=== PATIENT | female | born 1995 | race Caucasian/White ===

== ENCOUNTER 2016-12-26 10:59 | Inpatient (IN) | payer MEDICAID ==
[~2016-12-26] VITALS: Ht 157.5 cm; Wt 56.8 kg
[2016-12-26 12:43] LABS: BASOPHIL % 0.2 % (0-2); PLATELET COUNT 216 x10^3mcL (130-400); RED CELL DISTRIBUTION WIDTH 12.8 % (11.5-14.5)
[2016-12-26 12:54] LABS: CALCIUM 8.9 mg/dL (8.5-10.1); CARBON DIOXIDE 29.4 mmol/L (21-32); CHLORIDE SERUM 101 mmol/L (98-107); CREATININE SERUM 0.6 mg/dL (0.6-1.0); GFR1 > 60 mL/min; GLUCOSE SERUM 87 mg/dL (74-106); POTASSIUM SERUM 3.8 mmol/L (3.5-5.1); SODIUM SERUM 141 mmol/L (136-145)
[2016-12-26 12:58] LABS: ALKALINE PHOSPHATASE 96 U/L (46-116); ALT/SGPT 17 U/L (14-59); AST/SGOT 14 U/L (15-37); BILIRUBIN TOTAL 0.9 mg/dL (0.20-1.00); LIPASE 120 IU/L (73-393); TOTAL PROTEIN, SERUM 7.8 g/dL (6.4-8.2)
[2016-12-26 16:18] LABS: CHOLESTEROL/HDL RATIO 2.2
[2016-12-26 16:23] LABS: FREE T4 1.16 ng/dL (0.76-1.46); FREE THYROXINE INDEX 2.8 ug/dL (1.4-4.5); T4(THYROXINE) 8.9 ug/dL (4.7-13.3)
[2016-12-26 16:31] VITALS: BP 111/68
[2016-12-26 16:49] LABS: T3 TOTAL 1.1 ng/mL
[2016-12-26 20:57] VITALS: BP 100/65
[2016-12-27 05:15] VITALS: BP 92/52
[2016-12-27 06:04] LABS: BASOPHIL % 0.2 % (0-2); PLATELET COUNT 198 x10^3mcL (130-400); RED CELL DISTRIBUTION WIDTH 12.7 % (11.5-14.5)
[2016-12-27 06:24] LABS: CALCIUM 8.6 mg/dL (8.5-10.1); CARBON DIOXIDE 25.7 mmol/L (21-32); CHLORIDE SERUM 106 mmol/L (98-107); CREATININE SERUM 0.5 mg/dL (0.6-1.0); GFR1 > 60 mL/min; GLUCOSE SERUM 111 mg/dL (74-106); MAGNESIUM 1.7 mg/dL (1.8-2.4); PHOSPHOROUS 4.6 mg/dL (2.5-4.9); POTASSIUM SERUM 4.3 mmol/L (3.5-5.1); SODIUM SERUM 141 mmol/L (136-145)
[2016-12-27 09:59] VITALS: BP 94/50
[2016-12-27 17:13] LABS: microscopic required? YES; urine erythrocyte 1+ (NEGATIVE)
[2016-12-27 17:27] LABS: AMPHETAMINE QUAL UR NONE DETECTED (NEG <=1000)
[2016-12-27 18:53] VITALS: BP 99/59
[2016-12-27 22:17] VITALS: BP 91/54
[2016-12-28 06:05] LABS: BASOPHIL % 0.4 % (0-2); PLATELET COUNT 198 x10^3mcL (130-400); RED CELL DISTRIBUTION WIDTH 12.8 % (11.5-14.5)
[2016-12-28 06:07] VITALS: BP 97/60
[2016-12-28] MEDS ORDERED: KEFLEX500 M1 PO (10:06)
[2016-12-28] MEDS ORDERED: LAC PO (10:06)
[2016-12-28] MEDS ORDERED: COLACE100 MG PO (10:07)
[2016-12-28] MEDS ORDERED: TYL500 PO (10:08)
[2016-12-28 11:04] VITALS: BP 98/60
[2016-12-28 13:59] VITALS: BP 98/60
== END 2016-12-28 14:43 | disposition home or self-care (01) | DRG 225 ==
LOC: ED 10:59 → MU 14:35 → DU 14:35 → MU 16:18
PROVIDERS: Emergency Medicine; Surgery; ADMIT Family Medicine
PROC: 0DTJ4ZZ Resection of Appendix, Percutaneous Endoscopic Approach (ICD-10-PCS; principal; 2016-12-26 17:00)
DX: K35.80 Unspecified acute appendicitis (principal); E44.0 Moderate protein-calorie malnutrition; E83.42 Hypomagnesemia; N39.0 Urinary tract infection, site not specified; Z68.22 Body mass index [BMI] 22.0-22.9, adult
CPT/HCPCS: 83880; 84439; J0330; J0690; J0696; J1885; J2175; J2250; J2405; J2704; J3010; J3490; J7030; J7120; Q0092

== ENCOUNTER 2018-09-05 18:46 | Emergency (ER) | payer MEDICAID ==
[~2018-09-05] VITALS: Ht 160 cm; Wt 67.1 kg
[~2018-09-05 18:46] MED LIST: COLACE100 MG PO; KEFLEX500 M1 PO; LAC PO; TYL500 PO
[2018-09-05 19:20] VITALS: Ht 160 cm; Wt 67.1 kg
[2018-09-05 20:08] LABS: BASOPHIL % 0.3 % (0-2); PLATELET COUNT 247 x10^3mcL (130-400); RED CELL DISTRIBUTION WIDTH 13.1 % (11.5-14.5)
[2018-09-05 20:20] LABS: CALCIUM 8.9 mg/dL (8.5-10.1); CARBON DIOXIDE 27.5 mmol/L (21-32); CHLORIDE SERUM 104 mmol/L (98-107); CREATININE SERUM 0.7 mg/dL (0.6-1.0); GFR1 > 60 mL/min; GLUCOSE SERUM 114 mg/dL (74-106); POTASSIUM SERUM 3.5 mmol/L (3.5-5.1); SODIUM SERUM 139 mmol/L (136-145)
[2018-09-05 20:33] LABS: ALKALINE PHOSPHATASE 69 U/L (46-116); ALT/SGPT 24 U/L (14-59); AMYLASE 52 U/L (25-115); AST/SGOT 16 U/L (15-37); BILIRUBIN TOTAL 0.43 mg/dL (0.20-1.00); LIPASE 174 IU/L (73-393); TOTAL PROTEIN, SERUM 7.9 g/dL (6.4-8.2)
[2018-09-05 21:27] VITALS: BP 114/63
== END 2018-09-05 21:20 | disposition home or self-care (01) ==
LOC: ED 18:46
PROVIDERS: Emergency Medicine
DX: K80.50 Calculus of bile duct without cholangitis or cholecystitis without obstruction (principal); Z90.89 Acquired absence of other organs
CPT/HCPCS: 36415; J1885